=== PATIENT | female | born 1985 | race Caucasian/White ===

== ENCOUNTER 2018-07-17 09:09 | Outpatient (CLI) | payer BC ==
[2018-07-17] MEDS ORDERED: BARIUM SULFATE 135 ML SUSP.RECON (E-Z-HD) PO ONE (09:35)
== END 2018-07-17 18:14 | disposition home or self-care (01) ==
LOC: SRD 09:09
PROVIDERS: ATTEND Otolaryngology Plastic Surgery within the Head & Neck
DX: R13.10 Dysphagia, unspecified (principal)
CPT/HCPCS: 74220-TC